=== PATIENT | male | born 1960 | race African-American/Black ===

== ENCOUNTER → 2017-04-08 | Day surgery (SDC) | payer OTHER ==
[~2017-04-08] MED LIST: MULTI VITAMIN1 EACH PO; ZESTORETIC 10-1 EAC1 PO
--- NOTE | ~2017-04-08 | OR ---
Unit #: [id number] #: [id number] Patient: JUNITO DUCKWORTH III [id number] [address] [place], [place] [address] [id number] MR#: [id number] NAME: JUNITO DUCKWORTH III ROOM: Date of Procedure: 04/08/2017 Admission Date: 04/08/2017 Surgeon: Stefan Marrero M.D. : 1960 Attending Physician: Stefan Marrero M.D. Referring Physician: Stefan Marrero M.D. Primary Care Physician: Huey Sheridan Aprn OPERATIVE REPORT PROCEDURE PERFORMED Colonoscopy with biopsy, removal of polyps. INDICATIONS FOR PROCEDURE Average risk for colorectal cancer. MEDICATIONS Monitored anesthesia. POSTOPERATIVE FINDINGS 1. Three polyps; one in transverse, two in sigmoid, all 3 to 5 mm, removed using biopsy forceps. 2. Rest of the exam to cecum was normal. 3. Prep was good. PLAN Repeat colonoscopy in 5 years if adenomatous. DESCRIPTION OF PROCEDURE The patient was explained of the procedure risks and benefits along with the risks and benefits of anesthesia. He was brought to the endoscopy room. Propofol anesthesia was given. Rectal exam was done, which was normal. Colonoscope was lubricated, passed up the rectum, advanced under direct vision all the way to the cecum. Cecum was identified by ileocecal valve and appendiceal orifice. I then started to pull the scope out carefully looking. Several small polyps were removed using biopsy forceps. I retroflexed in the rectum, small hemorrhoids seen. Scope was gently pulled out. He tolerated it well. Dictated by... Loi Richardson/calista TD: 04/08/2017 15:02 JOB #: [id number] Unit #: [id number] #: [id number] Patient: JUNITO DUCKWORTH III OPERATIVE REPORT Page 1 of 1 X Stefan Marrero MD PROCEDURE OPERATIVE NOTE
== END | disposition home or self-care (01) ==
LOC: COPS 04-01 12:00
DX: Z12.11 Encounter for screening for malignant neoplasm of colon (principal); D12.4 Benign neoplasm of descending colon; K63.5 Polyp of colon; K64.9 Unspecified hemorrhoids; I10 Essential (primary) hypertension; Z79.899 Other long term (current) drug therapy
CPT/HCPCS: 88305